=== PATIENT | male | born 1945 ===

== ENCOUNTER 2017-03-26 23:35 | Inpatient (IN) | payer MEDICARE ==
[2017-03-27] MEDS ORDERED: Lidocaine 2% w Epi 1:100,000 Inj IJ ONE (00:15)
[2017-03-27] MEDS: Lidocaine 2% w Epi 1:100,000 Inj IJ ONE ×2 (00:25→00:26)
[2017-03-27 00:29] LABS: BASO # 0.1 K/uL (0.0-0.2); BASO % 1.2 % (0.0-2.0); EOS # 1.2 K/uL (0.0-0.7); EOS % 19.2 % (0.0-4.0); HEMATOCRIT 38.5 % (35.0-51.0); LYMPH # 3.1 K/uL (1.0-4.3); LYMPH % 50.6 % (20.0-40.0); MEAN CELL VOLUME 89.6 fl (80.0-94.0); MEAN CORPUSCULAR HEMOGLOBIN 29.5 pg (27.0-31.0); MEAN CORPUSCULAR HGB CONC 32.9 g/dL (33.0-37.0); MEAN PLATELET VOLUME 9.3 fl (7.2-11.7); MONO # 0.5 K/uL (0.0-0.8); MONO % 8.8 % (0.0-10.0); NEUT # 1.2 K/uL (1.8-7.0); NEUT % 20.2 % (50.0-75.0); NRBC % 0.1 % (0.0-0.0); RED CELL DISTRIBUTION WIDTH 13.5 % (11.5-14.5); WHITE BLOOD COUNT 6.1 K/uL (4.8-10.8)
--- NOTE | 2017-03-27 00:38 | CT ---
EXAM: CT Head Without Intravenous Contrast CLINICAL HISTORY: 72 years old, male; Injury or trauma; Fall; Initial encounter; Laceration; Consciousness not specified; Without residual foreign body; Forehead TECHNIQUE: Axial computed tomography images of the head/brain without intravenous contrast. All CT scans at this facility use one or more dose reduction techniques, viz.: automated exposure control; ma/kV adjustment per patient size (including targeted exams where dose is matched to indication; i.e. head); or iterative reconstruction technique. Coronal and sagittal reformatted images were created and reviewed. COMPARISON: No relevant prior studies available. FINDINGS: Brain: No acute intracranial hemorrhage. Age-appropriate periventricular white matter disease. No edema. Ventricles: Age-appropriate ventriculomegaly. Bones: No acute displaced fracture. Sinuses: Mucoperiosteal thickening within the bilateral ethmoid sinuses. Mastoid air cells: Unremarkable as visualized. No mastoid effusion. Soft tissue defect along the left frontal scalp. IMPRESSION: No acute intracranial hemorrhage, or suspicious mass effect. Soft tissue defect without underlying fracture. Inflammatory sinus disease.
[2017-03-27 00:41] LABS: ALB/GLOB RATIO 1.3 (1.0-2.1); ALKALINE PHOSPHATASE 45 U/L (38-126); ALT/SGPT 32 U/L (21-72); AST/SGOT 35 U/L (17-59); BILIRUBIN,TOTAL 0.7 mg/dl (0.2-1.3); BLOOD UREA NITROGEN 18 mg/dl (9-20); CARBON DIOXIDE 22 mmol/L (22-30); CHLORIDE 105 mmol/L (98-107); GFR AFRICAN-AMERICAN 56; GLUCOSE,RANDOM 89 mg/dL (75-110); SODIUM 143 mmol/l (132-148); TOTAL PROTEIN 7.5 G/DL (6.3-8.2)
--- NOTE | 2017-03-27 00:52 | ED PDOC ---
HPI: Trauma/Fall - HPI Time Seen by Provider: 03/26/17 23:38 Chief Complaint (Nursing): Trauma Chief Complaint (Provider): Fall, Facial Laceration History Per: Patient History/Exam Limitations: no limitations Onset/Duration Of Symptoms: Hrs (earlier tonight) Injury Occurred (Timing): Just Before Arrival Additional History Per: Family () Additional Complaint(s): Patient is a 72 y/o male with no known past medical history, who presents to the ED complaining of injury due to falling down the stairs. Patient admits to drinking and reports he was at a family constitution party earlier tonight when he went to take the garbage out and fell down the stairs. He claims he is unsure of what happened exactly and denies any physical complaints. Patient's reports she heard the noise and opened to the door to find the patient unconscious at the bottom of the stairs, and that by time she reached bottom of steps he was awake and alert. Patient is in a C-Collar and has a laceration to his forehead. PCP: Provider [facility] Past Medical History Reviewed: Historical Data, Nursing Documentation, Vital Signs Vital Signs: Last Vital Signs Temp 97.8 F 03/26/17 23:37 Pulse 78 03/26/17 23:37 Resp 18 03/26/17 23:37 BP 146/83 03/26/17 23:37 Pulse Ox 99 03/26/17 23:37 - Medical History PMH: No Chronic Diseases - Surgical History Surgical History: No Surg Hx - Family History Family History: States: No Known Family Hx - Living Arrangements Living Arrangements: With Family - Social History Current smoker - smoking cessation education provided: No Alcohol: Social Drugs: Denies - Home Medications Home Medications: Ambulatory Orders Medication Instructions Recorded No Known Home Med 03/27/17 - Allergies Allergies/Adverse Reactions: Allergies Allergy/AdvReac Type Severity Reaction Status Date / Time No Known Allergies Allergy Verified 03/26/17 23:37 Review of Systems ROS Statement: Except As Marked, All Systems Reviewed And Found Negative Skin: Positive for: Other (Laceration on forehead) Physical Exam - Reviewed Nursing Documentation Reviewed: Yes Vital Signs Reviewed: Yes - Physical Exam Appears: Positive for: No Acute Distress Head Exam: Positive for: ATRAUMATIC (4cm laceration to left forehead), NORMOCEPHALIC Neck: Positive for: Decreased ROM (cervical collar in place) Cardiovascular/Chest: Positive for: Regular Rate, Rhythm. Negative for: Murmur Respiratory: Positive for: Normal Breath Sounds. Negative for: Respiratory Distress - Laboratory Results Result Diagrams: 03/27/17 00:19 03/27/17 00:19 - ECG O2 Sat by Pulse Oximetry: 99 Medical Decision Making Medical Decision Making: EKG interpreted and cleared by ED MD Pt on critical care nurse practitioner, vitals remain stable IV access established and treatment initiated with Acetaminophen PO Head, Maxillofacial and Cervical CTS all negative Labs resulted and reviewed and discussed with Pt who demonstrated full understanding ETOH 189 Pt reports feeling well on re-eval. Pt asked to use restroom and given urinal. Pt stood up to try and urinate and fell forawrd, striking his head on the wall and then turning to hit hois back against the wall. New left sided frontal hematoma noted. Superficial abrasion noted to left side of back. pt reports headache and dizziness s/p fall. repeat Head CT ordered; Negative Tramadol PO ordered Pt admitted to Tele -obs. Dr. Brandt made aware Disposition - Clinical Impression Clinical Impression: Fall, Facial laceration, Head injury, Dizzy, Alcohol intoxication - Patient ED Disposition Is Patient to be Admitted: Yes - Disposition Disposition Time: 04:10 Condition: STABLE - Pt Status Changed To: Hospital Disposition Of: Observation - POA Present On Arrival: Falls Or Trauma
--- NOTE | 2017-03-27 00:57 | CT ---
EXAM: CT Cervical Spine Without Intravenous Contrast CLINICAL HISTORY: 72 years old, male; Injury or trauma; Fall; Initial encounter; Laceration; Not specified; Injury date: 03/27/17; Injury details: Forehead laceration TECHNIQUE: Axial computed tomography images of the cervical spine without intravenous contrast. All CT scans at this facility use one or more dose reduction techniques, viz.: automated exposure control; ma/kV adjustment per patient size (including targeted exams where dose is matched to indication; i.e. head); or iterative reconstruction technique. Coronal and sagittal reformatted images were created and reviewed. COMPARISON: No relevant prior studies available. FINDINGS: There is no evidence for fracture of the cervical vertebrae. The is no acute subluxation. Multilevel degenerative changes. Degenerative disc disease with disc osteophyte formation. Associated impression on the central canal and neural foraminal narrowing. Facet arthropathy. Most significant degenerative changes at C5-C6. Apical scarring. Prominence of interstitial markings right lung apex. Partial visualization of maxillary sinus mucosal thickening. Carotid calcification. IMPRESSION: Negative for acute fracture. Please see details/findings as above. Correlate clinically. Followup as warranted.
--- NOTE | 2017-03-27 01:55 | CT ---
EXAM: CT Orbits Without Intravenous Contrast CLINICAL HISTORY: 72 years old, male; Injury or trauma; Fall; Initial encounter; Laceration; Forehead; Without residual foreign body TECHNIQUE: Axial computed tomography images of the orbits without intravenous contrast. All CT scans at this facility use one or more dose reduction techniques, viz.: automated exposure control; ma/kV adjustment per patient size (including targeted exams where dose is matched to indication; i.e. head); or iterative reconstruction technique. Coronal reformatted images were created and reviewed. COMPARISON: CT - HEAD W/O CONTRAST 2017-03-27 00:04 FINDINGS: Orbits: Unremarkable as visualized. Sinuses: Mild paranasal sinus mucosal thickening. No air-fluid levels. Bones: No acute fracture. Soft tissues: Frontal/left facial soft tissue injury, correlate clinically. IMPRESSION: Negative for acute fracture. Details as above.
--- NOTE | 2017-03-27 03:04 | CT ---
EXAM: CT Head Without Intravenous Contrast CLINICAL HISTORY: 72 years old, male; Injury or trauma; Fall; Initial encounter; Concussion / head injury; Without loss of consciousness; Injury date: 03/27/17; Patient HX: Fell in ed. Repeat CT head; Additional info: Fall in ed, head injury TECHNIQUE: Axial computed tomography images of the head/brain without intravenous contrast. All CT scans at this facility use one or more dose reduction techniques, viz.: automated exposure control; ma/kV adjustment per patient size (including targeted exams where dose is matched to indication; i.e. head); or iterative reconstruction technique. Sagittal reformatted images were created and reviewed. COMPARISON: CT - HEAD W/O CONTRAST 2017-03-27 00:04 FINDINGS: Brain: No acute intracranial hemorrhage. Age-appropriate periventricular white matter disease. No edema. Ventricles: Age-appropriate ventriculomegaly. Bones: No acute displaced fracture. Sinuses: Unremarkable as visualized. No acute sinusitis. Mastoid air cells: Unremarkable as visualized. No mastoid effusion. IMPRESSION: No acute intracranial hemorrhage, or suspicious mass effect.
[2017-03-27 09:03] LABS: HEMATOCRIT 37.9 % (35.0-51.0); MEAN CELL VOLUME 86.2 fl (80.0-94.0); MEAN CORPUSCULAR HEMOGLOBIN 29.4 pg (27.0-31.0); MEAN CORPUSCULAR HGB CONC 34.1 g/dL (33.0-37.0); RED CELL DISTRIBUTION WIDTH 13.3 % (11.5-14.5)
[2017-03-27 09:10] LABS: WHITE BLOOD COUNT 9.4 K/uL (4.8-10.8)
[2017-03-27 09:12] LABS: ALB/GLOB RATIO 1.2 (1.0-2.1); ALKALINE PHOSPHATASE 49 U/L (38-126); ALT/SGPT 39 U/L (21-72); AST/SGOT 60 U/L (17-59); BILIRUBIN,TOTAL 0.9 mg/dl (0.2-1.3); BLOOD UREA NITROGEN 18 mg/dl (9-20); CALCIUM 9.3 mg/dL (8.4-10.2); CARBON DIOXIDE 24 mmol/L (22-30); CHLORIDE 105 mmol/L (98-107); CHOLESTEROL 208 mg/dL (0-199); GFR AFRICAN-AMERICAN > 60; GLUCOSE,RANDOM 82 mg/dL (75-110); POTASSIUM 4.6 MMOL/L (3.6-5.0); SODIUM 143 mmol/l (132-148); TOTAL PROTEIN 7.9 G/DL (6.3-8.2)
[2017-03-27 09:47] LABS: THYROID STIMULATING HORMONE 0.35 mIU/ML (0.46-4.68)
--- NOTE | 2017-03-27 12:21 | CARD ---
APPROVED REPORT EKG Measurement Heart [id number] <Conclusion> Normal sinus rhythm Voltage criteria for left ventricular hypertrophy Abnormal ECG
--- NOTE | 2017-03-27 12:41 | HP ---
CHIEF COMPLAINT: Fall and facial laceration. HISTORY OF PRESENT ILLNESS: This is a 72-year-old male without significant past medical history, who fell down stairs and came to the emergency room. The patient does admit to heavy drinking and was drinking heavily the night before and the patient went out to take out his garbage, the patient fell down stairs. The patient complains of dizziness and the patient does not remember actually what happened. REVIEW OF SYSTEMS: At this time is positive for headache, dizziness, and abdominal pain. Review of systems, otherwise, negative for loss of consciousness, chest pain, shortness of breath, nausea, vomiting, diarrhea, constipation. Review of systems of all other organ system is unremarkable. PAST MEDICAL HISTORY: Unremarkable. PAST SURGICAL HISTORY: Unremarkable. PERSONAL HISTORY: The patient has an obvious history of alcohol abuse, but no substance abuse. No smoking. FAMILY HISTORY: Noncontributory. MEDICATIONS: The patient is not taking any medications according to the patient. ALLERGIES: HE IS NOT ALLERGIC TO ANY MEDICATION. PHYSICAL EXAMINATION: GENERAL: Well-built and well-nourished, disheveled 72-year-old male, in no acute distress. VITAL SIGNS: Temperature 98.9, pulse 98, respiration 20, blood pressure 166/85, no orthostatic changes. HEENT: The patient has signs of trauma and laceration, but no JVD, no thyromegaly, no lymphadenopathy, no nystagmus. HEART: S1 and S2, normal and regular. No significant murmur, gallop, or rub is heard. LUNGS: Shows good bilateral air exchange. No rales or rhonchi. ABDOMEN: Soft and nontender. No organomegaly. No fluid. Bowel sounds are present. No sign of acute abdomen. no guarding. No rigidity. No rebound. EXTREMITIES: No edema. No calf swelling. No tenderness. No acute ischemia. No sign of acute fracture. No sign of distal neurovascular compromise. CENTRAL NERVOUS SYSTEM: The patient is alert, awake, oriented x3. There is no sign of any acute gross focal motor or sensory neurological deficits. DIAGNOSTIC DATA: Available diagnostic data reviewed. Telemetry monitoring does not reveal significant arrhythmia. WBC is 6.1, hemoglobin 12.7, hematocrit 38.5, platelets 195. Sodium 143, potassium 4.0, chloride 105, bicarb of 22, BUN 18, creatinine 1.5. SMA-12 is unremarkable. Alcohol level is 189. CAT scan of head is unremarkable. Orbital x-ray is unremarkable. Hand x-ray is unremarkable. Cervical spine CT does not reveal any acute fracture. ADMITTING IMPRESSION: Alcohol abuse, near-syncope, alcohol intoxication, and hypertension. PLAN: As ordered. Case and plan discussed with the patient. Sterling Brandt MD
--- NOTE | 2017-03-27 12:59 | RAD ---
HISTORY: pain s/p fall COMPARISON: No prior FINDINGS: BONES: Normal. No fracture. JOINTS: Normal. No osteoarthritis. SOFT TISSUE: Normal. OTHER FINDINGS: None . IMPRESSION: No acute fracture.
--- NOTE | 2017-03-27 13:16 | RAD ---
PROCEDURE: CHEST RADIOGRAPH, 1 VIEW HISTORY: med screening COMPARISON: None available. FINDINGS: LUNGS: Clear. PLEURA: No pneumothorax or pleural fluid seen. CARDIOVASCULAR: Normal. OSSEOUS STRUCTURES: No significant abnormalities. VISUALIZED UPPER ABDOMEN: Normal. OTHER FINDINGS: None. IMPRESSION: No active disease.
[2017-03-27] MEDS: Pantoprazole 40 mg EC Tab PO SCH (13:21)
--- NOTE | 2017-03-27 14:20 | CP.PCM.CON ---
History of Present Illness - History of Present Illness History of Present Illness: PT STATES HE SLIPPED AND FELL. NO DIZZINESS, CP, PALP, PRESYNCOPE. THIS IS HIS FIRST FALL. HE WAS INTOXICATED. PT DOES NOT VISIT A DOCTOR. NO CARDIAC HX. NO ORTHOPNEA, PND, DAISY. PTS BP MILDLY ELEVATED. HE DENIES DAILY ETOH USE. Past Patient History - Past Medical History & Family History Past Medical History?: Yes - Past Social History Smoking Status: Never Smoked - CARDIAC Hx Cardiac Disorders: No - PULMONARY Hx Respiratory Disorders: No - NEUROLOGICAL Hx Neurological Disorder: Yes Hx Syncope: Yes - HEENT Hx HEENT Problems: No - RENAL Hx Chronic Kidney Disease: No - ENDOCRINE/METABOLIC Hx Endocrine Disorders: No - HEMATOLOGICAL/ONCOLOGICAL Hx Blood Disorders: No - INTEGUMENTARY Hx Dermatological Problems: No - MUSCULOSKELETAL/RHEUMATOLOGICAL Hx Musculoskeletal Disorders: No Hx Falls: Yes - GASTROINTESTINAL Hx Gastrointestinal Disorders: No - GENITOURINARY/GYNECOLOGICAL Hx Genitourinary Disorders: No - PSYCHIATRIC Hx Psychophysiologic Disorder: No Hx Substance Use: No - SURGICAL HISTORY Hx Surgeries: No - ANESTHESIA Hx Anesthesia: No Meds Allergies/Adverse Reactions: Allergies Allergy/AdvReac Type Severity Reaction Status Date / Time No Known Allergies Allergy Verified 03/26/17 23:37 - Medications Medications: Current Medications Acetaminophen (Tylenol 325mg Tab) 650 mg PO Q4 PRN PRN Reason: Pain, Mild (1-3) Pantoprazole Sodium (Protonix Ec Tab) 40 mg PO DAILY [facility] Last Admin: 03/27/17 13:21 Dose: 40 mg Tramadol HCl (Ultram) 50 mg PO Q6 PRN PRN Reason: Pain, moderate (4-7) Last Admin: 03/27/17 13:25 Dose: 50 mg Results - Vital Signs Recent Vital Signs: Last Vital Signs Temp 99 F 03/27/17 12:00 Pulse 86 03/27/17 12:00 Resp 18 03/27/17 12:00 BP 165/86 H 03/27/17 12:00 Pulse Ox 96 03/27/17 12:00 - Labs Result Diagrams: 03/28/17 07:20 03/28/17 06:00 Labs: Laboratory Results - last 24 hr 03/26/17 03/27/17 03/27/17 23:56 00:19 00:19 WBC 6.1 RBC 4.30 L Hgb 12.7 Hct 38.5 MCV 89.6 MCH 29.5 MCHC 32.9 L RDW 13.5 Plt Count 195 MPV 9.3 Neut % (Auto) 20.2 L Lymph % (Auto) 50.6 H Lincoln % (Auto) 8.8 Eos % (Auto) 19.2 H Baso % (Auto) 1.2 Neut # 1.2 L Lymph # 3.1 Lincoln # 0.5 Eos # 1.2 H Baso # 0.1 Sodium 143 Potassium 4.0 Chloride 105 Carbon Dioxide 22 Anion Gap 20 BUN 18 Creatinine 1.5 Est GFR ( Amer) 56 Est GFR (Non-Af Amer) 46 POC Glucose (mg/dL) 83 Random Glucose 89 Calcium 9.0 Total Bilirubin 0.7 AST 35 ALT 32 Alkaline Phosphatase 45 Total Creatine Kinase 130 Troponin I < 0.0120 Total Protein 7.5 Albumin 4.2 Globulin 3.3 Albumin/Globulin Ratio 1.3 Triglycerides Cholesterol LDL Cholesterol Direct HDL Cholesterol Vitamin B12 Free T4 TSH 3rd Generation Alcohol, Quantitative 03/27/17 03/27/17 03/27/17 01:25 08:10 08:10 WBC 9.4 D RBC 4.40 Hgb 12.9 Hct 37.9 MCV 86.2 D MCH 29.4 MCHC 34.1 RDW 13.3 Plt Count 186 MPV Neut % (Auto) Lymph % (Auto) [place] % (Auto) Eos % (Auto) Baso % (Auto) Neut # Lymph # [place] # Eos # Baso # Sodium Potassium Chloride Carbon Dioxide Anion Gap BUN Creatinine Est GFR ( Amer) Est GFR (Non-Af Amer) POC Glucose (mg/dL) Random Glucose Calcium Total Bilirubin AST ALT Alkaline Phosphatase Total Creatine Kinase Troponin I Total Protein Albumin Globulin Albumin/Globulin Ratio Triglycerides Cholesterol LDL Cholesterol Direct HDL Cholesterol Vitamin B12 Free T4 0.59 L TSH 3rd Generation Alcohol, Quantitative 189 H 03/27/17 08:40 WBC RBC Hgb Hct MCV MCH MCHC RDW Plt Count MPV Neut % (Auto) Lymph % (Auto) [place] % (Auto) Eos % (Auto) Baso % (Auto) Neut # Lymph # [place] # Eos # Baso # Sodium 143 Potassium 4.6 Chloride 105 Carbon Dioxide 24 Anion Gap 18 BUN 18 Creatinine 1.1 Est GFR ( Amer) > 60 Est GFR (Non-Af Amer) > 60 POC Glucose (mg/dL) Random Glucose 82 Calcium 9.3 Total Bilirubin 0.9 AST 60 H D ALT 39 Alkaline Phosphatase 49 Total Creatine Kinase Troponin I Total Protein 7.9 Albumin 4.3 Globulin 3.5 Albumin/Globulin Ratio 1.2 Triglycerides 163 H Cholesterol 208 H LDL Cholesterol Direct 145 H HDL Cholesterol 46 Vitamin B12 306 Free T4 TSH 3rd Generation 0.35 L Alcohol, Quantitative Assessment & Plan (1) Alcohol intoxication Status: Acute (2) Facial laceration Status: Acute (3) Fall Status: Acute - Assessment and Plan (Free Text) Plan: PT STATES HE SLIPPED AND FELL DOWN STAIRS. NO PALP, LH, DIZZINESS, SOB, CP, EDEMA. PT WISHES TO GO HOME, FAMILY AT BEDSIDE. AWAIT ECHO START LOW DOSE CLONIDINE FOR BP AND FOR ANY POSSIBLE ETOH WITHDRAWAL. ABD US ORDERED TELE NO ARRYTHMIAS.
[2017-03-28 07:21] LABS: HEMATOCRIT 36.1 % (35.0-51.0); MEAN CORPUSCULAR HEMOGLOBIN 29.8 pg (27.0-31.0); MEAN CORPUSCULAR HGB CONC 33.1 g/dL (33.0-37.0); RED CELL DISTRIBUTION WIDTH 13.4 % (11.5-14.5); WHITE BLOOD COUNT 5.3 K/uL (4.8-10.8)
[2017-03-28 07:48] LABS: ALB/GLOB RATIO 1.1 (1.0-2.1); ALKALINE PHOSPHATASE 43 U/L (38-126); ALT/SGPT 36 U/L (21-72); AST/SGOT 51 U/L (17-59); BILIRUBIN,TOTAL 1.5 mg/dl (0.2-1.3); BLOOD UREA NITROGEN 20 mg/dl (9-20); CALCIUM 8.8 mg/dL (8.4-10.2); CARBON DIOXIDE 28 mmol/L (22-30); CHLORIDE 104 mmol/L (98-107); GFR AFRICAN-AMERICAN > 60; GLUCOSE,RANDOM 105 mg/dL (75-110); POTASSIUM 4.1 MMOL/L (3.6-5.0); SODIUM 140 mmol/l (132-148); TOTAL PROTEIN 7.1 G/DL (6.3-8.2)
[2017-03-28] MEDS: Pantoprazole 40 mg EC Tab PO SCH (09:12)
--- NOTE | 2017-03-28 10:53 | US ---
HISTORY: abd pain COMPARISON: None. TECHNIQUE: Sonographic evaluation of the abdomen. FINDINGS: LIVER: Measures cm. Normal echogenicity of the liver parenchyma. No mass. No intrahepatic bile duct dilatation. GALLBLADDER: Unremarkable. No gallstones. COMMON BILE DUCT: Measures mm. No stones. No dilatation. PANCREAS: Mild pancreatic duct dilatation measuring 2 millimeters. Otherwise the pancreas is homogeneous. RIGHT KIDNEY: Measures cm. Normal echogenicity. No calculus, mass, or hydronephrosis. 1 centimeter right renal cyst. LEFT KIDNEY: Measures cm. Normal echogenicity. No calculus, mass, or hydronephrosis. SPLEEN: Normal in size and contour. No mass. AORTA: No aneurysmal dilatation. IVC: Unremarkable. OTHER FINDINGS: None. IMPRESSION: Homogeneous pancreas with mild pancreatic duct dilatation. Recommend correlation with contrast-enhanced CT scan of the pancreas.
--- NOTE | 2017-03-28 13:31 | CP.PCM.PN ---
Subjective - Date & Time of Evaluation Date of Evaluation: 03/27/17 Time of Evaluation: 15:00 - Subjective Subjective: PT WITHOUT COMPLAINTS OTHER THAN NAUSEA. ABD US SHOWED DILATED PANCREATIC DUCT. Objective - Vital Signs/Intake and Output Vital Signs (last 24 hours): Temp Pulse Resp BP Pulse Ox 98.4 F 66 16 110/71 99 03/28/17 12:31 03/28/17 12:31 03/28/17 12:31 03/28/17 12:31 03/28/17 12:31 Intake and Output: 03/28/17 03/28/17 06:59 18:59 Intake Total 300 Output Total 500 Balance -200 - Medications Medications: Current Medications Acetaminophen (Tylenol 325mg Tab) 650 mg PO Q4 PRN PRN Reason: Pain, Mild (1-3) Clonidine HCl (Catapres) 0.1 mg PO BID [facility] Last Admin: 03/28/17 09:11 Dose: 0.1 mg Pantoprazole Sodium (Protonix Ec Tab) 40 mg PO DAILY [facility] Last Admin: 03/28/17 09:12 Dose: 40 mg Tramadol HCl (Ultram) 50 mg PO Q6 PRN PRN Reason: Pain, moderate (4-7) Last Admin: 03/27/17 13:25 Dose: 50 mg - Labs Labs: 03/28/17 07:20 03/28/17 06:00 - Constitutional Appears: Well - Head Exam Head Exam: ATRAUMATIC, NORMAL INSPECTION, NORMOCEPHALIC - Eye Exam Eye Exam: EOMI, Normal appearance, PERRL Pupil Exam: NORMAL ACCOMODATION, PERRL - ENT Exam ENT Exam: Mucous Membranes Moist, Normal Exam - Neck Exam Neck Exam: Full ROM, Normal Inspection. absent: Lymphadenopathy - Respiratory Exam Respiratory Exam: Clear to Ausculation Bilateral, NORMAL BREATHING PATTERN - Cardiovascular Exam Cardiovascular Exam: REGULAR RHYTHM, +S1, +S2, Murmur. absent: Bradycardia, Tachycardia, Clicks, Diastolic murmur, Gallop, Irregular Rhythm, JVD, RRR, Rubs , +S4 - GI/Abdominal Exam GI & Abdominal Exam: Soft, Normal Bowel Sounds. absent: Tenderness - Extremities Exam Extremities Exam: Full ROM, Normal Capillary Refill, Normal Inspection. absent : Joint Swelling, Pedal Edema - Back Exam Back Exam: NORMAL INSPECTION - Neurological Exam Neurological Exam: Alert, Awake, CN II-XII Intact, Normal Gait, Oriented x3 - Psychiatric Exam Psychiatric exam: Normal Affect, Normal Mood - Skin Skin Exam: Dry, Intact, Normal Color, Warm Assessment and Plan (1) Alcohol intoxication Status: Acute (2) Facial laceration Status: Acute (3) Fall Status: Acute - Assessment and Plan (Free Text) Plan: PTS MED HX UNKNOWN HE HAS NOT GONE TO [place] FOR YEARS. PT DENIES SYNCOPE. NO SX OF CARDIAC ETIOLOGY. PT POOR HISTORIAN. HI RULED OUT. ECHO PENDING. BP STABLE.
--- NOTE | 2017-03-28 15:44 | PN ---
DATE: 03/28/2017 SUBJECTIVE: Patient seen and examined. Interim events noted. Consults noted and appreciated. Patient remains in Progressive Care Unit on telemetry monitoring. complains of arthritic pain. No chest pain. No shortness of breath. No abdominal pain. Able to tolerate p.o. without any problems. PHYSICAL EXAMINATION: GENERAL: Patient is in no acute distress. VITAL SIGNS: Stable. HEART: S1 and S2, normal and regular. LUNGS: Good bilateral air entry. ABDOMEN: Soft, nontender. No organomegaly. No fluid. Bowel sounds are present. No sign of acute abdomen. No guarding. No rigidity. No rebound. EXTREMITIES: No edema. No calf swelling. No tenderness. No acute ischemia. CENTRAL NERVOUS SYSTEM: Essentially unchanged. DIAGNOSTIC DATA: Available diagnostic data reviewed. Telemetry monitoring does not reveal significant arrhythmias. ASSESSMENT AND PLAN: Overall, patient's general medical condition is hemodynamically stable and improving. Plan as ordered. Sterling Brandt MD
[2017-03-29 05:36] LABS: HEMATOCRIT 35.7 % (35.0-51.0); MEAN CORPUSCULAR HEMOGLOBIN 32.4 pg (27.0-31.0); MEAN CORPUSCULAR HGB CONC 34.5 g/dL (33.0-37.0); RED CELL DISTRIBUTION WIDTH 13.4 % (11.5-14.5); WHITE BLOOD COUNT 6.2 K/uL (4.8-10.8)
[2017-03-29 05:43] LABS: ALB/GLOB RATIO 1.1 (1.0-2.1); ALKALINE PHOSPHATASE 40 U/L (38-126); ALT/SGPT 35 U/L (21-72); AST/SGOT 40 U/L (17-59); BILIRUBIN,TOTAL 0.9 mg/dl (0.2-1.3); BLOOD UREA NITROGEN 18 mg/dl (9-20); CALCIUM 9.1 mg/dL (8.4-10.2); CARBON DIOXIDE 27 mmol/L (22-30); CHLORIDE 105 mmol/L (98-107); GFR AFRICAN-AMERICAN > 60; GLUCOSE,RANDOM 118 mg/dL (75-110); POTASSIUM 4.1 MMOL/L (3.6-5.0); SODIUM 140 mmol/l (132-148); TOTAL PROTEIN 7.3 G/DL (6.3-8.2)
[2017-03-29] MEDS: Pantoprazole 40 mg EC Tab PO SCH (08:51)
--- NOTE | 2017-03-29 18:01 | CP.PCM.PN ---
Subjective - Date & Time of Evaluation Date of Evaluation: 03/29/17 Time of Evaluation: 22:15 - Subjective Subjective: PT WITHOUT CP OR PALP Objective - Vital Signs/Intake and Output Vital Signs (last 24 hours): Temp Pulse Resp BP Pulse Ox 98.6 F 64 20 106/70 98 03/29/17 16:49 03/29/17 17:36 03/29/17 16:49 03/29/17 17:36 03/29/17 16:49 Intake and Output: 03/29/17 03/29/17 06:59 18:59 Intake Total 850 Output Total 600 Balance 250 - Medications Medications: Current Medications Acetaminophen (Tylenol 325mg Tab) 650 mg PO Q4 PRN PRN Reason: Pain, Mild (1-3) Clonidine HCl (Catapres) 0.1 mg PO BID [facility] Last Admin: 03/29/17 17:36 Dose: Not Given Pantoprazole Sodium (Protonix Ec Tab) 40 mg PO DAILY [facility] Last Admin: 03/29/17 08:51 Dose: 40 mg Tramadol HCl (Ultram) 50 mg PO Q6 PRN PRN Reason: Pain, moderate (4-7) Last Admin: 03/29/17 08:51 Dose: 50 mg - Labs Labs: 03/29/17 04:35 03/29/17 04:35 - Constitutional Appears: Well - Head Exam Head Exam: ATRAUMATIC, NORMAL INSPECTION, NORMOCEPHALIC - Eye Exam Eye Exam: EOMI, Normal appearance, PERRL Pupil Exam: NORMAL ACCOMODATION, PERRL - ENT Exam ENT Exam: Mucous Membranes Moist, Normal Exam - Neck Exam Neck Exam: Full ROM, Normal Inspection. absent: Lymphadenopathy - Respiratory Exam Respiratory Exam: Clear to Ausculation Bilateral, NORMAL BREATHING PATTERN - Cardiovascular Exam Cardiovascular Exam: REGULAR RHYTHM, +S1, +S2. absent: Murmur - GI/Abdominal Exam GI & Abdominal Exam: Soft, Normal Bowel Sounds. absent: Tenderness - Extremities Exam Extremities Exam: Full ROM, Normal Capillary Refill, Normal Inspection. absent : Joint Swelling, Pedal Edema - Back Exam Back Exam: NORMAL INSPECTION - Neurological Exam Neurological Exam: Alert, Awake, CN II-XII Intact, Normal Gait, Oriented x3 - Psychiatric Exam Psychiatric exam: Normal Affect, Normal Mood - Skin Skin Exam: Dry, Intact, Normal Color, Warm Assessment and Plan (1) Alcohol intoxication Status: Acute (2) Facial laceration Status: Acute (3) Fall Status: Acute - Assessment and Plan (Free Text) Plan: ECHO IMAGES REVEALED NML EF. MILD AI, TR. ALSO LOW LV VOLUME AND COLLAPSED IVC = DEHYDRATION. WILL ADD IVF AND RECHECK BMP TOMORROW.
--- NOTE | 2017-03-30 00:44 | CON ---
DATE: 03/29/2017 REASON FOR CONSULTATION: Alcohol intoxication with head trauma. The patient was brought in to [facility] following fall at home. From a neurological point of view, I was called in to evaluate him for his fall as well as head injury and history alcohol abuse. HISTORY OF PRESENT ILLNESS: Mr. Gokul Godinez is a 72-year-old right-handed pleasant male presenting with head trauma with alcohol intoxication. He claims that around 11:00 he was holding a garbage bag in both hands, stepping down in the staircase to put the garbage outside, he slipped himself and fell forward and hit his head on his left side. He also hurt his neck from the fall. Some loss of consciousness at the scene. The patient with no history of witnessed tonic-clonic activities, no seizures. PAST MEDICAL HISTORY: Alcohol abuse, otherwise unremarkable history. No history of smoking except alcohol he drinks in the weekends. REVIEW OF SYSTEMS: A 12-point system has been reviewed. From neuro, change in mental status and head injury. PHYSICAL EXAMINATION: VITAL SIGNS: Blood pressure 106/70, mean arterial pressure of 82, respiratory rate 16, temperature is afebrile. NECK: Supple. No carotid bruit. HEART: Sounds are regular. CHEST: Fair air entry. EXTREMITIES: No edema in legs. NEUROLOGICAL: The patient was examined in the presence of his family members. He is awake, alert, and oriented to person, place, and time. Speech is clear. Naming, repetition, fluency and comprehension, all within normal. CRANIAL NERVE EXAMINATION: Visual jack are intact. Pupils are reactive to light. Extraocular movements are normal. No nystagmus. No facial sensory deficits. No facial asymmetry. Hearing is normal. Tongue is midline. Good gag. Posttraumatic stitches noted over the left frontal region. MOTOR EXAMINATION: Outstretched hand with eyes closed, no drifting noted. Power is symmetric on either side. Deep tendon reflexes, biceps, brachialis, triceps absent; both knees are 3+; both ankles are 2+; plantars are equivocal response. SENSORY EXAMINATION: Mild distal sensory motor neuropathy noted. COORDINATION: Jqodyh-hfbz-yrabjl test is intact. No tremor. No asterixis. WORKUP: CT of the head reviewed by me, no acute pathologies noted. CT of the neck also showed some facet arthropathy with significant degenerative disease at C5-C6 levels without cord impingement. Mild stenosis in the central canal noted. CT of the head, no acute pathology. Blood workup: WBC 6.2, hemoglobin 12.3, hematocrit 35.7, and platelets 171. Sodium 140, potassium 4.1, chloride 105, bicarbonate 27, BUN 18, creatinine 1.0, GFR is more than 60, and glucose 118. Triglycerides 163, cholesterol 208, LDL 145, B12 of 306, prolactin 18.8, alcohol level was 189 at the time of admission. EEG, normal for his age, no paroxysmal activities or focal slowing noted. CONCLUSION: Gretchen had been presenting with postconcussion syndrome with alcohol intoxication. The current examination does not show any central nervous system disease related to his alcohol. RECOMMENDATIONS: 1. The patient should have been advised abstinence from his alcohol. 2. The patient should be on multivitamins. 3. The patient should be followed, either me or other neurologists, for his abnormal deep tendon reflexes in his lower extremities with history of possible cervical myelopathy. At that time, the patient can be benefited of doing MRIs, which can be done as an outpatient; however, because of the marcella, MRI cannot be done at present. When medically stable, the patient can be discharged and advised to see me as outpatient for followup. Geoffrey Shea MD
[2017-03-30] MEDS ORDERED: HYDROmorphone 0.5 mg/0.5 ml ISec ONE (03:15)
[2017-03-30] MEDS ORDERED: Iohexol 300 100 ML IJ ONE ×2 (07:55→08:31)
[2017-03-30] MEDS ORDERED: Sodium Chloride 0.9% 50 ML IV ONE ×2 (07:55→08:31)
[2017-03-30] MEDS: Pantoprazole 40 mg EC Tab PO SCH (08:54)
[2017-03-30] MEDS: Sodium Chloride 0.9% 1,000 ML IV SCH ×2 (08:59→18:22)
--- NOTE | 2017-03-30 09:31 | PN ---
DATE: 03/29/2017 SUBJECTIVE: The patient is seen and examined. Interim events noted. Consults noted and appreciated. The patient remains in Progressive Care Unit on telemetry monitoring. The patient feels okay. Denies any specific complaint. No chest pain. No shortness of breath. PHYSICAL EXAMINATION: GENERAL: The patient is in no acute distress. VITAL SIGNS: Stable. HEART: S1 and S2, normal and regular. LUNGS: Good bilateral air exchange. ABDOMEN: Soft, nontender. EXTREMITIES: No edema. No calf swelling. No tenderness. No acute ischemia. CENTRAL NERVOUS SYSTEM: Essentially unchanged. DIAGNOSTIC DATA: Available diagnostic data reviewed. Telemetry monitoring does not reveal significant arrhythmias. ASSESSMENT AND PLAN: Overall, the patient's general medical condition is stable and improving. Plan as ordered. Sterling Brandt MD
--- NOTE | 2017-03-30 09:36 | EEG ---
DATE: 03/29/2017 This is a 16-channel electroencephalogram of awake and drowsy adult. During the study, photic stimulation was performed. Hyperventilation was not performed. The resting electroencephalogram consists of 30 to 40 microvolts, 9 to 11 Hz alpha activity seen at parietal and occipital leads. Anteriorly, fast activity superimposed with 2 to 3 Hz delta activity seen at frontal and the central leads. The background alpha activity symmetrically attenuated with eye opening. The photic stimulation did not evoke driving response noted at 2 to 20 Hz. IMPRESSION: This is a normal electroencephalogram of awake and drowsy adult. During the study, neither electroencephalographic paroxysmal activities nor focal slowing noted. Geoffrey Shea MD
[2017-03-30 09:42] LABS: AMYLASE 93 U/L (30-110); BLOOD UREA NITROGEN 13 mg/dl (9-20); CARBON DIOXIDE 28 mmol/L (22-30); CHLORIDE 102 mmol/L (98-107); GFR AFRICAN-AMERICAN > 60; GLUCOSE,RANDOM 114 mg/dL (75-110); LIPASE 49 U/L (23-300); POTASSIUM 4.7 MMOL/L (3.6-5.0); SODIUM 139 mmol/l (132-148)
[2017-03-30 09:48] LABS: HEMATOCRIT 38.3 % (35.0-51.0); MEAN CELL VOLUME 88.3 fl (80.0-94.0); MEAN CORPUSCULAR HEMOGLOBIN 30.4 pg (27.0-31.0); MEAN CORPUSCULAR HGB CONC 34.4 g/dL (33.0-37.0); RED CELL DISTRIBUTION WIDTH 13.2 % (11.5-14.5); WHITE BLOOD COUNT 5.4 K/uL (4.8-10.8)
--- NOTE | 2017-03-30 11:03 | CARD ---
APPROVED REPORT EXAM: Two-dimensional and M-mode echocardiogram with Doppler and color Doppler. Other Information Quality : GoodRhythm : NSR INDICATION Syncope 2D DIMENSIONS IVSd0.95 (0.7-1.1cm)LVDd4.89 (3.9-5.9cm) LVOT Diameter2.62 (1.8-2.4cm)PWd0.94 (0.7-1.1cm) IVSs1.27 (0.8-1.2cm)LVDs3.37 (2.5-4.0cm) FS (%) 31.0 %PWs1.09 (0.8-1.2cm) M-Mode DIMENSIONS Left Atrium (MM)3.38 (2.5-4.0cm)IVSd0.91 (0.7-1.1cm) Aortic Root4.09 (2.2-3.7cm)LVDd4.68 (4.0-5.6cm) Aortic Cusp Exc.1.91 (1.5-2.0cm)PWd0.88 (0.7-1.1cm) IVSs1.12 cmFS (%) 29 % LVDs3.32 (2.0-3.8cm)PWs1.38 cm Mitral Valve MV E Qazyowxs91.1cm/sMV DECEL [id number] A Ubjsdvpd18.5cm/s MV LXC537ntC/A ratio0.7MVA (PHT)1.96cm2 TDI Lateral E' Peak V8.23cm/sMedial E' Peak V5.62cm/sE/Lateral E'4.6 E/Medial E'6.8 Pulmonary Valve PV Peak Qaubspst76.1cm/s Tricuspid Valve TR Peak Cumovqtt444jk/sRAP IZRHHUGL39kbTuZX Peak Gr.20mmHg EDPS70nsCj LEFT VENTRICLE The left ventricle is normal size. There is normal left ventricular wall thickness. The left ventricular function is normal. The left ventricular ejection fraction is within the normal range. The Ejection Fraction is 65-70%. The left ventricular function is normal. The left ventricular ejection fraction is within the normal range. There is normal LV segmental wall motion. The left ventricular diastolic function is normal. No left ventricle thrombus noted on this study. There is no mass noted in the left ventricle. RIGHT VENTRICLE The right ventricle is normal size. There is normal right ventricular wall thickness. The right ventricular systolic function is normal. ATRIA The left atrium size is normal. The right atrium size is normal. The interatrial septum is intact with no evidence for an atrial septal defect. AORTIC VALVE The aortic valve is normal in structure and function. No aortic regurgitation is present. There is no aortic valvular stenosis. There is no aortic valvular vegetation. MITRAL VALVE The mitral valve is normal in structure and function. There is no evidence of mitral valve prolapse. There is no mitral valve stenosis. Mitral regurgitation is trace to mild. TRICUSPID VALVE The tricuspid valve is normal in structure and function. There is no tricuspid valve regurgitation noted. There is no tricuspid valve prolapse or vegetation. There is no tricuspid valve stenosis. PULMONIC VALVE The pulmonary valve is normal in structure and function. There is no pulmonic valvular regurgitation. There is no pulmonic valvular stenosis. GREAT VESSELS The aortic root is normal in size. The IVC is normal in size and collapses >50% with inspiration. PERICARDIAL EFFUSION The pericardium appears normal. There is no pleural effusion. <Conclusion> The left ventricle is normal size. There is normal left ventricular wall thickness. The left ventricular function is normal. The left ventricular ejection fraction is within the normal range. The Ejection Fraction is 65-70%. .Mitral regurgitation is trace to mild.
--- NOTE | 2017-03-30 12:03 | CT ---
PROCEDURE: CT Abdomen and Pelvis with and without intravenous contrast HISTORY: pancreatitis COMPARISON: None. TECHNIQUE: Axial images of the abdomen were obtained in the pre contrast, and late arterial phases of enhancement. Coronal and sagittal reformats were generated. Contrast dose: 95 mL Omnipaque 300 Radiation dose: Total exam DLP = 674.11 mGy-cm. This CT exam was performed using one or more of the following dose reduction techniques: Automated exposure control, adjustment of the mA and/or kV according to patient size, and/or use of iterative reconstruction technique. FINDINGS: LOWER THORAX: No infiltrate/ effusion. Calcified granuloma in the lingular segment of the left upper lobe. LIVER: Punctate calcification in the left lobe of the liver consistent with calcified granuloma. Smooth contour. No mass. No biliary dilatation. GALLBLADDER AND BILE DUCTS: Unremarkable. PANCREAS: No mass. No evidence of pancreatic necrosis. No peripancreatic fluid or edema to suggest acute pancreatitis. No pancreatic ductal dilatation. SPLEEN: Unremarkable. ADRENALS: Unremarkable. No mass. KIDNEYS AND URETERS: Multiple small bilateral renal cortical cysts. 12 mm lower pole right kidney. 7 mm and 8 mm lower pole left kidney. 8 mm upper pole left kidney. No renal calculus or hydronephrosis. VASCULATURE: No evidence of abdominal aortic aneurysm. BOWEL: Diverticulosis of the distal descending and sigmoid colon. No evidence of diverticulitis. No bowel obstruction. No other abnormal bowel loops are appreciated. APPENDIX: Normal appendix. PERITONEUM: Unremarkable. No free fluid. No free air. LYMPH NODES: No retroperitoneal or pelvic lymphadenopathy. Shotty subcentimeter mesenteric nodes with hazy increased density in the small bowel mesenteric, in a circumscribed fashion, consistent with mesenteric panniculitis common nonspecific. Please note that within the small bowel mesenteric there is a 1.7 cm rounded mass. There is curvilinear high attenuation along the periphery of this mass which may represent atherosclerotic calcification along the periphery of an aneurysm. This does not clearly represent an aneurysm and there is no enhancement of this mass following intravenous contrast administration. Nevertheless, the possibility of a thrombosed mesenteric arterial aneurysm should be considered in the differential diagnosis, in the absence of other enlarged mesenteric lymph nodes. BLADDER: Unremarkable. REPRODUCTIVE: Mild prostate enlargement. BONES: No fracture. Grade 1 retrolisthesis at L5-S1 with degenerative disc disease at L5-S1. No spondylolysis. OTHER FINDINGS: None. IMPRESSION: Findings consistent with mesenteric panniculitis. No evidence of acute pancreatitis. No evidence of pancreatic necrosis. 1.7 cm rounded mass in the small bowel mesenteric. Differential diagnosis includes thrombosed mesenteric arterial aneurysm versus enlarged mesenteric lymph node. Additional minor findings as above.
--- NOTE | 2017-03-30 12:50 | PQF GENQUE ---
This form is a permanent part of the medical record 03/30/17 Dr. Brandt, Please clarify the possible etiology of the syncope if known. ER: Patient admits to drinking and reports he was at a family alliance party earlier tonight when he went to take the garbage out and fell down the stairs. He claims he is unsure of what happened exactly and denies any physical complaints. Patient's reports she heard the noise and opened to the door to find the patient unconscious at the bottom of the stairs, and that by time she reached bottom of steps he was awake and alert. IMP: Fall, facial laceration, head injury, dizzy, alcohol intoxication H&P: Alcohol abuse, near syncope, alcohol intoxication Cardiology: Fall, alcohol intoxication, facial laceration, Dehydration Neurologist: Post-concussion syndrome with alcohol intoxication CT HEAD: No acute intracranial hemorrhage, EKG NSR, ECHO: EF 65-70%, EEG: Normal Clarification of your documentation is requested to better reflect the severity of illness and intensity of treatment of your patient. Indicators present [] Specify: [] [] Specify: [] [] Specify: [] [] Specify: [] Location in the medical record that reflects the above clinical findings: [] Treatment Provided: [] PHYSICIAN'S RESPONSE Based on your medical judgment of the clinical indicators outlined above please clarify the following: [] Practitioner response [] If unable to determine, please check the box, sign and date. Present On Admission (POA) Indicator: [] Present at the time of admission [] Not present at the time of admission [] Clinically Undetermined In responding to this query, please exercise your independent professional judgment. The fact that a question is asked does not imply that any particular answer is desired or expected. Thank you for your clarification on this documentation. If you have any questions please call:ext [phone] * Thank you, Quynh Padilla RN [facility]
--- NOTE | 2017-03-30 14:01 | CP.PCM.CON ---
<Sue Sousa - Last Filed: 03/30/17 14:17> History of Present Illness - History of Present Illness History of Present Illness: General Surgery Consult note for Dr. Goncalves Consulted for: Mesenteric Panniculitis Patient is 72M who denies any past medical or surgical history who presented to the ER 2 days ago after falling down stairs while intoxicated. Patient reported abdominal pain on admission, and abdominal ultrasound showed dilated pancreatic duct and hemogenous pancreas, so a CT was performed today. CT showed hazy density of the mesentery suggestive of messenteric panniculitis and a round mass suggestive of a lymph node vs. mesenteric vessel aneurysm, so general surgery was consulted. Patient denies any current abdominal pain, nausea, vomiting, fevers, chills, diarrhea, constipation, hematochezia or melena. He is tolerating a heart healthy diet. Review of Systems - Review of Systems All systems: reviewed and no additional remarkable complaints except (as per HPI ) - Constitutional Constitutional: absent: Chills, Fever, Frequent Falls, Weakness - Cardiovascular Cardiovascular: absent: Chest Pain, Chest Pain at Rest, Dyspnea - Respiratory Respiratory: absent: Cough, Dyspnea, Dyspnea on Exertion - Gastrointestinal Gastrointestinal: As Per HPI - Genitourinary Genitourinary: absent: Difficulty Urinating, Dysuria, Hematuria - Musculoskeletal Musculoskeletal: Neck Pain. absent: Back Pain, Numbness, Tingling - Integumentary Additional comments: lacerations of forehead and left cheek s/p fall, repaired in ER - Neurological Neurological: absent: Numbness, Tingling, Weakness Past Patient History - Past Medical History & Family History Past Medical History?: Yes - Past Social History Smoking Status: Never Smoked Alcohol: Social Drugs: Denies Home Situation {Lives}: With Family - CARDIAC Hx Cardiac Disorders: No - PULMONARY Hx Respiratory Disorders: No - NEUROLOGICAL Hx Neurological Disorder: Yes Hx Syncope: Yes - HEENT Hx HEENT Problems: No - RENAL Hx Chronic Kidney Disease: No - ENDOCRINE/METABOLIC Hx Endocrine Disorders: No - HEMATOLOGICAL/ONCOLOGICAL Hx Blood Disorders: No - INTEGUMENTARY Hx Dermatological Problems: No - MUSCULOSKELETAL/RHEUMATOLOGICAL Hx Musculoskeletal Disorders: No Hx Falls: Yes - GASTROINTESTINAL Hx Gastrointestinal Disorders: No - GENITOURINARY/GYNECOLOGICAL Hx Genitourinary Disorders: No - PSYCHIATRIC Hx Psychophysiologic Disorder: No Hx Substance Use: No - SURGICAL HISTORY Hx Surgeries: No - ANESTHESIA Hx Anesthesia: No Meds Allergies/Adverse Reactions: Allergies Allergy/AdvReac Type Severity Reaction Status Date / Time No Known Allergies Allergy Verified 03/26/17 23:37 - Medications Medications: Current Medications Acetaminophen (Tylenol 325mg Tab) 650 mg PO Q4 PRN PRN Reason: Pain, Mild (1-3) Clonidine HCl (Catapres) 0.1 mg PO BID ON LICENSE OF [facility] Last Admin: 03/30/17 08:54 Dose: 0.1 mg Enoxaparin Sodium (Lovenox) 40 mg SC DAILY ON LICENSE OF [facility] PRN Reason: Protocol Sodium Chloride (Sodium Chloride 0.9%) 1,000 mls @ 100 mls/hr IV .Q10H ON LICENSE OF [facility] Stop: 03/30/17 22:17 Last Admin: 03/30/17 08:59 Dose: 100 mls/hr Ciprofloxacin (Cipro 200mg/100ml D5w) 100 mls @ 100 mls/hr IVPB Q12 TRIP Metronidazole (Flagyl 500mg/100ml Ns) 100 mls @ 100 mls/hr IVPB Q8 TRIP PRN Reason: Protocol Pantoprazole Sodium (Protonix Ec Tab) 40 mg PO DAILY ON LICENSE OF [facility] Last Admin: 03/30/17 08:54 Dose: 40 mg Physical Exam - Constitutional Appears: Non-toxic, No Acute Distress - Head Exam Head Exam: NORMOCEPHALIC Additional comments: laceration on left fore-head well approximated with sutures, no drainage or bleeding - Eye Exam Eye Exam: EOMI, Normal appearance, PERRL. absent: Conjunctival injection, Scleral icterus Pupil Exam: PERRL - ENT Exam ENT Exam: Mucous Membranes Moist, Normal Oropharynx - Neck Exam Neck exam: Positive for: Normal Inspection. Negative for: Tenderness - Respiratory Exam Respiratory Exam: NORMAL BREATHING PATTERN. absent: Accessory Muscle Use, Respiratory Distress - Cardiovascular Exam Cardiovascular Exam: RRR - GI/Abdominal Exam GI & Abdominal Exam: Soft. absent: Distended, Tenderness - Extremities Exam Extremities exam: Positive for: pedal pulses present. Negative for: calf tenderness, pedal edema - Back Exam Back exam: NORMAL INSPECTION. absent: CVA tenderness (L), CVA tenderness (R) - Neurological Exam Neurological exam: Alert, Oriented x3 - Psychiatric Exam Psychiatric exam: Normal Affect, Normal Mood - Skin Skin Exam: Dry, Normal Color, Warm Results - Vital Signs Recent Vital Signs: Last Vital Signs Temp 98.1 F 03/30/17 12:00 Pulse 75 03/30/17 12:00 Resp 18 03/30/17 12:00 BP 106/67 03/30/17 12:00 Pulse Ox 98 03/30/17 12:00 - Labs Result Diagrams: 03/30/17 09:15 03/30/17 09:15 Labs: Laboratory Results - last 24 hr 03/29/17 03/30/17 03/30/17 04:35 09:15 09:15 WBC 5.4 RBC 4.34 L Hgb 13.2 Hct 38.3 MCV 88.3 D MCH 30.4 MCHC 34.4 RDW 13.2 Plt Count 186 Sodium 139 Potassium 4.7 Chloride 102 Carbon Dioxide 28 Anion Gap 14 BUN 13 Creatinine 0.8 Est GFR ( Amer) > 60 Est GFR (Non-Af Amer) > 60 Random Glucose 114 H Calcium 9.0 Amylase 93 Lipase 49 Prolactin 18.8 H - Imaging and Cardiology CT scan - abdomen Status: Image reviewed by me, Report reviewed by me US - abdomen Status: Report reviewed by me Assessment & Plan - Assessment and Plan (Free Text) Assessment: 72M s/p fall with CT finding concerning for mesenteric panniculitis and mesenteric mass Plan: -No indication for surgical intervention. Patient denies any abdominal symptoms and is tolerating regular diet -Continue HHD -PRN pain and nausea medication -GI and DVT ppx -Follow up GI recs -Continue medical management per primary Discussed with Dr. Goncalves, further recs per him Sue Sousa, PGY2 <Sharan Goncalvse - Last Filed: 03/30/17 16:18> History of Present Illness - History of Present Illness History of Present Illness: Patient was seen and examined at the bedside. Agree with resident's note above. Meds - Medications Medications: Current Medications Acetaminophen (Tylenol 325mg Tab) 650 mg PO Q4 PRN PRN Reason: Pain, Mild (1-3) Clonidine HCl (Catapres) 0.1 mg PO BID ON LICENSE OF [facility] Last Admin: 03/30/17 16:11 Dose: 0.1 mg Enoxaparin Sodium (Lovenox) 40 mg SC DAILY TRIP PRN Reason: Protocol Last Admin: 03/30/17 14:40 Dose: 40 mg Sodium Chloride (Sodium Chloride 0.9%) 1,000 mls @ 100 mls/hr IV .Q10H ON LICENSE OF [facility] Stop: 03/30/17 22:17 Last Admin: 03/30/17 08:59 Dose: 100 mls/hr Ciprofloxacin (Cipro 200mg/100ml D5w) 100 mls @ 100 mls/hr IVPB Q12 TRIP Metronidazole (Flagyl) 500 mg PO Q8 ON LICENSE OF [facility] Last Admin: 03/30/17 16:11 Dose: 500 mg Pantoprazole Sodium (Protonix Ec Tab) 40 mg PO DAILY ON LICENSE OF [facility] Last Admin: 03/30/17 08:54 Dose: 40 mg Results - Vital Signs Recent Vital Signs: Last Vital Signs Temp 98.1 F 03/30/17 12:00 Pulse 75 03/30/17 16:11 Resp 18 03/30/17 12:00 BP 106/67 03/30/17 16:11 Pulse Ox 98 03/30/17 12:00 - Labs Result Diagrams: 03/30/17 09:15 03/30/17 09:15 Labs: Laboratory Results - last 24 hr 03/29/17 03/30/17 03/30/17 04:35 09:15 09:15 WBC 5.4 RBC 4.34 L Hgb 13.2 Hct 38.3 MCV 88.3 D MCH 30.4 MCHC 34.4 RDW 13.2 Plt Count 186 Sodium 139 Potassium 4.7 Chloride 102 Carbon Dioxide 28 Anion Gap 14 BUN 13 Creatinine 0.8 Est GFR ( Amer) > 60 Est GFR (Non-Af Amer) > 60 Random Glucose 114 H Calcium 9.0 Amylase 93 Lipase 49 Prolactin 18.8 H Assessment & Plan - Assessment and Plan (Free Text) Plan: - No general surgery intervention at present time - Continue care as per medical team - Will follow
[2017-03-30] MEDS: Enoxaparin 40 mg Syringe SC SCH (14:40)
--- NOTE | 2017-03-30 16:43 | CP.PCM.PN ---
<Lila Mak - Last Filed: 03/30/17 16:46> Subjective - Date & Time of Evaluation Date of Evaluation: 03/30/17 Time of Evaluation: 09:00 - Subjective Subjective: 72 YO M seen and examined at bedside with Dr. Brandt. No overnight events reported Objective - Vital Signs/Intake and Output Vital Signs (last 24 hours): Temp Pulse Resp BP Pulse Ox 96 F L 76 20 107/75 96 03/30/17 16:22 03/30/17 16:22 03/30/17 16:22 03/30/17 16:22 03/30/17 16:22 - Medications Medications: Current Medications Acetaminophen (Tylenol 325mg Tab) 650 mg PO Q4 PRN PRN Reason: Pain, Mild (1-3) Clonidine HCl (Catapres) 0.1 mg PO BID [facility] Last Admin: 03/30/17 16:11 Dose: 0.1 mg Enoxaparin Sodium (Lovenox) 40 mg SC DAILY TRIP PRN Reason: Protocol Last Admin: 03/30/17 14:40 Dose: 40 mg Sodium Chloride (Sodium Chloride 0.9%) 1,000 mls @ 100 mls/hr IV .Q10H [facility] Stop: 03/30/17 22:17 Last Admin: 03/30/17 08:59 Dose: 100 mls/hr Ciprofloxacin (Cipro 200mg/100ml D5w) 100 mls @ 100 mls/hr IVPB Q12 TRIP Metronidazole (Flagyl) 500 mg PO Q8 [facility] Last Admin: 03/30/17 16:11 Dose: 500 mg Pantoprazole Sodium (Protonix Ec Tab) 40 mg PO DAILY [facility] Last Admin: 03/30/17 08:54 Dose: 40 mg - Labs Labs: 03/30/17 09:15 03/30/17 09:15 - Constitutional Appears: Well - Head Exam Head Exam: NORMAL INSPECTION Additional comments: Hellen C/D/I - Respiratory Exam Respiratory Exam: Clear to Ausculation Bilateral, NORMAL BREATHING PATTERN - Cardiovascular Exam Cardiovascular Exam: REGULAR RHYTHM, +S1, +S2 - GI/Abdominal Exam GI & Abdominal Exam: Soft, Normal Bowel Sounds. absent: Tenderness - Neurological Exam Neurological Exam: Alert, Awake, CN II-XII Intact - Skin Skin Exam: Normal Color, Warm Assessment and Plan - Assessment and Plan (Free Text) Assessment: 1) Syncope: Most likely secondary to dehydration - Echo showed normal EF. Mild AI, TR. Low LV volume and collapsed IVC: Dehydration - Cardio consult appreciated - Neuro Consulted - MRI outpatient: Cannot due now because of hellen 2) Alcohol intoxication 3) Abdominal pain - CT showed: CT showed hazy density of the mesentery suggestive of messenteric panniculitis and a round mass suggestive of a lymph node vs. mesenteric vessel aneurysm, - Surg and GI consulted - PPI 4) DVT prophylaxis Lovenox <Sterling Brandt K - Last Filed: 04/01/17 11:30> Objective - Vital Signs/Intake and Output Vital Signs (last 24 hours): Temp Pulse Resp BP Pulse Ox 97.7 F 72 20 105/71 97 03/31/17 12:00 03/31/17 12:00 03/31/17 12:00 03/31/17 12:00 03/31/17 12:00 - Labs Labs: 03/30/17 09:15 03/30/17 09:15 Assessment and Plan - Assessment and Plan (Free Text) Assessment: Patient was personally seen and examined by me in rounds with residents. Available labs and diagnostic data reviewed. Case, Patient's condition and management plan discussed with residents in rounds. Agree with resident's progress note. Plan: As ordered.
[2017-03-30] MEDS ORDERED: metroNIDAZOLE 500mg/100ml NS 100 ML IVPB SCH (17:00)
[2017-03-30] MEDS: Ciprofloxacin 200mg/100ml D5W 100 ML IVPB SCH (21:27)
[2017-03-31 08:26] VITALS: RESP 20
[2017-03-31] MEDS: Ciprofloxacin 200mg/100ml D5W 100 ML IVPB SCH (08:43)
[2017-03-31] MEDS: Pantoprazole 40 mg EC Tab PO SCH (08:43)
[2017-03-31] MEDS: Enoxaparin 40 mg Syringe SC SCH (08:43)
--- NOTE | 2017-03-31 09:18 | CP.PCM.PN ---
Subjective - Date & Time of Evaluation Date of Evaluation: 03/31/17 Time of Evaluation: 09:15 - Subjective Subjective: Surgery: Dr. Goncalves Patient feeling better today. No complaints. Per nursing no acute events overnight. Objective - Vital Signs/Intake and Output Vital Signs (last 24 hours): Temp Pulse Resp BP Pulse Ox 98.7 F 69 20 150/88 95 03/31/17 08:00 03/31/17 08:42 03/31/17 08:00 03/31/17 08:42 03/31/17 08:00 Intake and Output: 03/31/17 03/31/17 06:59 18:59 Intake Total 240 Output Total 300 Balance -60 - Medications Medications: Current Medications Acetaminophen (Tylenol 325mg Tab) 650 mg PO Q4 PRN PRN Reason: Pain, Mild (1-3) Last Admin: 03/30/17 22:18 Dose: 650 mg Clonidine HCl (Catapres) 0.1 mg PO BID [facility] Last Admin: 03/31/17 08:42 Dose: 0.1 mg Enoxaparin Sodium (Lovenox) 40 mg SC DAILY [facility] PRN Reason: Protocol Last Admin: 03/31/17 08:43 Dose: 40 mg Ciprofloxacin (Cipro 200mg/100ml D5w) 100 mls @ 100 mls/hr IVPB Q12 [facility] Last Admin: 03/31/17 08:43 Dose: 100 mls/hr Metronidazole (Flagyl) 500 mg PO Q8 [facility] Last Admin: 03/31/17 08:43 Dose: 500 mg Pantoprazole Sodium (Protonix Ec Tab) 40 mg PO DAILY [facility] Last Admin: 03/31/17 08:43 Dose: 40 mg - Labs Labs: 03/30/17 09:15 03/30/17 09:15 - Constitutional Appears: Non-toxic, No Acute Distress - Eye Exam Eye Exam: EOMI, Normal appearance - ENT Exam ENT Exam: Mucous Membranes Moist - Respiratory Exam Respiratory Exam: NORMAL BREATHING PATTERN. absent: Respiratory Distress - Cardiovascular Exam Cardiovascular Exam: REGULAR RHYTHM. absent: Tachycardia - GI/Abdominal Exam GI & Abdominal Exam: Soft. 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
--- NOTE | 2017-03-31 11:59 | CP.PCM.DIS ---
<Lila Mak - Last Filed: 03/31/17 12:10> Provider - Provider Date of Admission: 03/28/17 19:37 Attending physician: Sterling Brandt MD Time Spent in preparation of Discharge (in minutes): 30 Diagnosis - Discharge Diagnosis (1) Near syncope Status: Acute Hospital Course - Lab Results Lab Results: Most Recent Lab Values WBC 5.4 K/uL (4.8-10.8) 03/30/17 09:15 RBC 4.34 Mil/uL (4.40-5.90) L 03/30/17 09:15 Hgb 13.2 g/dL (12.0-18.0) 03/30/17 09:15 Hct 38.3 % (35.0-51.0) 03/30/17 09:15 MCV 88.3 fl (80.0-94.0) D 03/30/17 09:15 MCH 30.4 pg (27.0-31.0) 03/30/17 09:15 MCHC 34.4 g/dL (33.0-37.0) 03/30/17 09:15 RDW 13.2 % (11.5-14.5) 03/30/17 09:15 Plt Count 186 K/uL (130-400) 03/30/17 09:15 MPV 9.3 fl (7.2-11.7) 03/27/17 00:19 Neut % (Auto) 20.2 % (50.0-75.0) L 03/27/17 00:19 Lymph % (Auto) 50.6 % (20.0-40.0) H 03/27/17 00:19 [place] % (Auto) 8.8 % (0.0-10.0) 03/27/17 00:19 Eos % (Auto) 19.2 % (0.0-4.0) H 03/27/17 00:19 Baso % (Auto) 1.2 % (0.0-2.0) 03/27/17 00:19 Neut # 1.2 K/uL (1.8-7.0) L 03/27/17 00:19 Lymph # 3.1 K/uL (1.0-4.3) 03/27/17 00:19 [place] # 0.5 K/uL (0.0-0.8) 03/27/17 00:19 Eos # 1.2 K/uL (0.0-0.7) H 03/27/17 00:19 Baso # 0.1 K/uL (0.0-0.2) 03/27/17 00:19 Sodium 139 mmol/l (132-148) 03/30/17 09:15 Potassium 4.7 MMOL/L (3.6-5.0) 03/30/17 09:15 Chloride 102 mmol/L (98-107) 03/30/17 09:15 Carbon Dioxide 28 mmol/L (22-30) 03/30/17 09:15 Anion Gap 14 (-20) 03/30/17 09:15 BUN 13 mg/dl (9-20) 03/30/17 09:15 Creatinine 0.8 mg/dL (0.8-1.5) 03/30/17 09:15 Est GFR ( Amer) > 60 03/30/17 09:15 Est GFR (Non-Af Amer) > 60 03/30/17 09:15 POC Glucose (mg/dL) 83 mg/dL (65-110) 03/26/17 23:56 Random Glucose 114 mg/dL (75-110) H 03/30/17 09:15 Calcium 9.0 mg/dL (8.4-10.2) 03/30/17 09:15 Total Bilirubin 0.9 mg/dl (0.2-1.3) 03/29/17 04:35 AST 40 U/L (17-59) 03/29/17 04:35 ALT 35 U/L (21-72) 03/29/17 04:35 Alkaline Phosphatase 40 U/L (38-126) 03/29/17 04:35 Total Creatine Kinase 130 U/L (55-170) 03/27/17 00:19 Troponin I < 0.0120 ng/mL (0.00-0.120) 03/27/17 00:19 Total Protein 7.3 G/DL (6.3-8.2) 03/29/17 04:35 Albumin 3.8 g/dL (3.5-5.0) 03/29/17 04:35 Globulin 3.4 gm/dL (2.2-3.9) 03/29/17 04:35 Albumin/Globulin Ratio 1.1 (1.0-2.1) 03/29/17 04:35 Triglycerides 163 mg/DL (0-149) H 03/27/17 08:40 Cholesterol 208 mg/dL (0-199) H 03/27/17 08:40 LDL Cholesterol Direct 145 mg/dL (0-129) H 03/27/17 08:40 HDL Cholesterol 46 MG/DL (30-70) 03/27/17 08:40 Amylase 93 U/L (30-110) 03/30/17 09:15 Lipase 49 U/L (23-300) 03/30/17 09:15 Vitamin B12 306 pg/mL (239-931) 03/27/17 08:40 Free T4 0.59 ng/dL (0.78-2.19) L 03/27/17 08:10 TSH 3rd Generation 0.35 mIU/ML (0.46-4.68) L 03/27/17 08:40 Prolactin 18.8 ng/mL (3.7-17.9) H 03/29/17 04:35 Alcohol, Quantitative 189 mg/dl (0-10) H 03/27/17 01:25 - Hospital Course Hospital Course: 1) Syncope: Most likely secondary to dehydration - Echo showed normal EF. Mild AI, TR. 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 - Continue with Cipro and Flagyl and follow up outpatient Discharge Exam - Head Exam Head Exam: NORMAL INSPECTION Additional comments: marcella c/d/i - Eye Exam Eye Exam: Normal appearance - Respiratory Exam Respiratory Exam: Clear to PA & Lateral. absent: Rhonchi, Wheezes - Cardiovascular Exam Cardiovascular Exam: REGULAR RHYTHM, +S1, +S2 - GI/Abdominal Exam GI & Abdominal Exam: Normal Bowel Sounds, Soft. absent: Tenderness - Neurological Exam Neurological exam: Alert, CN II-XII Intact - Skin Skin Exam: Normal Color, Warm Discharge Plan - Discharge Medications Prescriptions: Lactobacillus Acidophilus [Bacid Acidophilus] 1 cap PO BID #10 cap cloNIDine [Catapres] 0.1 mg PO BID #60 tab Ciprofloxacin HCl [Cipro] 250 mg PO BID #10 tablet metroNIDAZOLE [Flagyl] 500 mg PO Q8 #15 tab Pantoprazole [Protonix EC Tab] 40 mg PO DAILY #14 ect - Follow Up Plan Condition: STABLE Disposition: HOME/ ROUTINE Instructions: Laceration (DC), Head Injury (ED) Additional Instructions: pt. denies BRITO, dizziness, cp, sob fever or chills pt. cleared for discharge to Home today by , , Rx for meds provided pt. will f/u with pmd outpatient Referrals: [facility] [Outside] Sterling Brandt MD [Staff Provider] - <Sterling Brandt - Last Filed: 04/01/17 11:32> Provider - Provider Date of Admission: 03/28/17 19:37 Attending physician: Sterling Brandt MD Hospital Course - Lab Results Lab Results: Most Recent Lab Values WBC 5.4 K/uL (4.8-10.8) 03/30/17 09:15 RBC 4.34 Mil/uL (4.40-5.90) L 03/30/17 09:15 Hgb 13.2 g/dL (12.0-18.0) 03/30/17 09:15 Hct 38.3 % (35.0-51.0) 03/30/17 09:15 MCV 88.3 fl (80.0-94.0) D 03/30/17 09:15 MCH 30.4 pg (27.0-31.0) 03/30/17 09:15 MCHC 34.4 g/dL (33.0-37.0) 03/30/17 09:15 RDW 13.2 % (11.5-14.5) 03/30/17 09:15 Plt Count 186 K/uL (130-400) 03/30/17 09:15 MPV 9.3 fl (7.2-11.7) 03/27/17 00:19 Neut % (Auto) 20.2 % (50.0-75.0) L 03/27/17 00:19 Lymph % (Auto) 50.6 % (20.0-40.0) H 03/27/17 00:19 [place] % (Auto) 8.8 % (0.0-10.0) 03/27/17 00:19 Eos % (Auto) 19.2 % (0.0-4.0) H 03/27/17 00:19 Baso % (Auto) 1.2 % (0.0-2.0) 03/27/17 00:19 Neut # 1.2 K/uL (1.8-7.0) L 03/27/17 00:19 Lymph # 3.1 K/uL (1.0-4.3) 03/27/17 00:19 [place] # 0.5 K/uL (0.0-0.8) 03/27/17 00:19 Eos # 1.2 K/uL (0.0-0.7) H 03/27/17 00:19 Baso # 0.1 K/uL (0.0-0.2) 03/27/17 00:19 Sodium 139 mmol/l (132-148) 03/30/17 09:15 Potassium 4.7 MMOL/L (3.6-5.0) 03/30/17 09:15 Chloride 102 mmol/L (98-107) 03/30/17 09:15 Carbon Dioxide 28 mmol/L (22-30) 03/30/17 09:15 Anion Gap 14 (10-20) 03/30/17 09:15 BUN 13 mg/dl (9-20) 03/30/17 09:15 Creatinine 0.8 mg/dL (0.8-1.5) 03/30/17 09:15 Est GFR ( Amer) > 60 03/30/17 09:15 Est GFR (Non-Af Amer) > 60 03/30/17 09:15 POC Glucose (mg/dL) 83 mg/dL (65-110) 03/26/17 23:56 Random Glucose 114 mg/dL (75-110) H 03/30/17 09:15 Calcium 9.0 mg/dL (8.4-10.2) 03/30/17 09:15 Total Bilirubin 0.9 mg/dl (0.2-1.3) 03/29/17 04:35 AST 40 U/L (17-59) 03/29/17 04:35 ALT 35 U/L (21-72) 03/29/17 04:35 Alkaline Phosphatase 40 U/L (38-126) 03/29/17 04:35 Total Creatine Kinase 130 U/L (55-170) 03/27/17 00:19 Troponin I < 0.0120 ng/mL (0.00-0.120) 03/27/17 00:19 Total Protein 7.3 G/DL (6.3-8.2) 03/29/17 04:35 Albumin 3.8 g/dL (3.5-5.0) 03/29/17 04:35 Globulin 3.4 gm/dL (2.2-3.9) 03/29/17 04:35 Albumin/Globulin Ratio 1.1 (1.0-2.1) 03/29/17 04:35 Triglycerides 163 mg/DL (0-149) H 03/27/17 08:40 Cholesterol 208 mg/dL (0-199) H 03/27/17 08:40 LDL Cholesterol Direct 145 mg/dL (0-129) H 03/27/17 08:40 HDL Cholesterol 46 MG/DL (30-70) 03/27/17 08:40 Amylase 93 U/L (30-110) 03/30/17 09:15 Lipase 49 U/L (23-300) 03/30/17 09:15 Vitamin B12 306 pg/mL (239-931) 03/27/17 08:40 Free T4 0.59 ng/dL (0.78-2.19) L 03/27/17 08:10 TSH 3rd Generation 0.35 mIU/ML (0.46-4.68) L 03/27/17 08:40 Prolactin 18.8 ng/mL (3.7-17.9) H 03/29/17 04:35 Alcohol, Quantitative 189 mg/dl (0-10) H 03/27/17 01:25
[2017-03-31 12:05] VITALS: BP 105/71; PULSE 72; TEMP 97.7; O2SAT 97
--- NOTE | 2017-03-31 18:59 | CP.PCM.PN ---
Subjective - Date & Time of Evaluation Date of Evaluation: 03/30/17 Time of Evaluation: 18:00 - Subjective Subjective: NOTE FOR 03-30-17 FAMILY AT BEDSIDE. PT NO COMPLAINTS. ECHO WNL. PT WITHOUT COMPLAINTS. Objective - Vital Signs/Intake and Output Vital Signs (last 24 hours): Temp Pulse Resp BP Pulse Ox 97.7 F 72 20 105/71 97 03/31/17 12:00 03/31/17 12:00 03/31/17 12:00 03/31/17 12:00 03/31/17 12:00 Intake and Output: 03/31/17 03/31/17 06:59 18:59 Intake Total 240 1350 Output Total 300 Balance -60 1350 - Labs Labs: 03/30/17 09:15 03/30/17 09:15 - Constitutional Appears: Well - Head Exam Head Exam: ATRAUMATIC, NORMAL INSPECTION, NORMOCEPHALIC - Eye Exam Eye Exam: EOMI, Normal appearance, PERRL. absent: Conjunctival injection, Nystagmus, Periorbital swelling, Periorbital tenderness, Scleral icterus Pupil Exam: NORMAL ACCOMODATION, PERRL - ENT Exam ENT Exam: Mucous Membranes Moist, Normal Exam. absent: Mucous Membranes Dry, Normal External Ear Exam, Normal Oropharynx, TM's Normal Bilaterally - Neck Exam Neck Exam: Full ROM, Normal Inspection. absent: Lymphadenopathy, Meningismus, Tenderness, Thyromegaly - Respiratory Exam Respiratory Exam: Clear to Ausculation Bilateral, NORMAL BREATHING PATTERN. absent: Accessory Muscle Use, Chest Wall Tenderness, Decreased Breath Sounds, Prolonged Expiratory Phase, Rales, Rhonchi, Wheezes, Respiratory Distress, Stridor - Cardiovascular Exam Cardiovascular Exam: REGULAR RHYTHM, +S1, +S2, Murmur. absent: Bradycardia, Tachycardia, Clicks, Diastolic murmur, Gallop, Irregular Rhythm, JVD, RRR, Rubs , +S4 - GI/Abdominal Exam GI & Abdominal Exam: Soft, Normal Bowel Sounds - Rectal Exam Rectal Exam: Deferred - Extremities Exam Extremities Exam: Full ROM, Normal Capillary Refill, Normal Inspection - Back Exam Back Exam: NORMAL INSPECTION. absent: CVA tenderness (L), CVA tenderness (R), Full ROM, muscle spasm, paraspinal tenderness, rash noted, tenderness, vertebral tenderness - Neurological Exam Neurological Exam: Alert, Awake, CN II-XII Intact, Normal Gait, Oriented x3. absent: Abnormal Gait, Altered, Motor Sensory Deficit, Reflexes Normal - Psychiatric Exam Psychiatric exam: Normal Affect, Normal Mood. absent: Agitated, Anxious, Depressed, Flat Affect, Homicidal Ideation, Manic, Suicidal Ideation - Skin Skin Exam: Dry, Intact, Normal Color, Warm. absent: Abrasion, Cyanosis, Diaphoretic, Erythema, Mottled, Pallor, Pallor, Petechiae, Rash, Urticaria, Vesicles Assessment and Plan (1) Alcohol intoxication Status: Acute (2) Facial laceration Status: Acute (3) Fall Status: Acute - Assessment and Plan (Free Text) Plan: PT MAY BE D/C TO HOME FROM CARDIAC PERSPECTIVE.
== END 2017-03-31 15:25 | disposition home or self-care (01) | DRG 641 ==
LOC: H.ER 23:35 → H.ERHOLD 03-27 02:26 → H.TEL 03-27 04:02 → OBSVTOIN 03-28 19:37
PROVIDERS: ADMIT Internal Medicine; ATTEND Internal Medicine
DX: E86.0 Dehydration (principal); K65.4 Sclerosing mesenteritis; R55 Syncope and collapse; F10.129 Alcohol abuse with intoxication, unspecified; F07.81 Postconcussional syndrome; S01.81XA Laceration without foreign body of other part of head, initial encounter; K86.89 Other specified diseases of pancreas; I10 Essential (primary) hypertension; Y90.6 Blood alcohol level of 120-199 mg/100 ml; W10.9XXA Fall (on) (from) unspecified stairs and steps, initial encounter; Y92.009 Unspecified place in unspecified non-institutional (private) residence as the place of occurrence of the external cause